=== PATIENT | male | born 1990 | race Caucasian/White ===

== ENCOUNTER 2016-12-14 13:11 | Emergency (ER) | payer OTHER ==
[2016-12-14 14:26] VITALS: BP 144/77; PULSE 70; RESP 16; TEMP 98.1; O2SAT 95
--- NOTE | 2016-12-14 16:19 | UCPHY ---
H & P Time Seen by Provider: 12/14/16 15:57 Patient Type: New HPI/ROS: 26-year-old male presents complaining of cold symptoms for approximately 1-2 weeks and then noticed some spots in the back of his throat today Painful swallowing, no fevers no chills Review of systems As per HPI Positive cold symptoms General no fever no chills no weakness HEENT no eye pain no eye discharge. No eye redness, positive sore throat Respiratory no cough, no shortness of breath Cardiac no chest pain, no peripheral edema GI no abdominal pain, no diarrhea, no constipation, no nausea, no vomiting no flank pain, no hematuria, no dysuria Musculoskeletal no myalgias, no joint pain Heme no easy bruising, no easy bleeding Endo no polyuria, no polydipsia Skin no rashes, no pruritus Neuro no syncope, no dizziness, no headaches Psych is no suicidal ideation, no homicidal ideation Past Medical/Surgical History: None Social History: Alcohol socially, denies drug use Smoking Status: Never smoked Physical Exam: 26-year-old male Alert and oriented in no acute distress nontoxic appearance, afebrile Atraumatic normocephalic Extraocular muscles intact, anicteric Neck-supple, positive anterior cervical lymphadenopathy mildly tender to palpation Oropharynx positive enlarged tonsils, erythematous, no uvular deviation, no purulent exudate, tolerating own secretions, no trismus Several aphthous ulcers, erythematous base with central ulcer present in posterior pharynx Lungs clear to auscultation bilaterally Heart regular rate and rhythm Abdomen normoactive bowel sounds soft nontender Extremities no cyanosis clubbing edema Skin no rash Constitutional: Initial Vital Signs Temperature (C) 36.7 C 12/14/16 14:22 Heart Rate 70 12/14/16 14:22 Respiratory Rate 16 12/14/16 14:22 Blood Pressure 144/77 H 12/14/16 14:22 O2 Sat (%) 95 12/14/16 14:22 O2 Delivery Mode Room Air Allergies/Adverse Reactions: No Known Allergies Allergy (Verified 12/14/16 14:21) Home Medications: Medication Instructions Recorded NK [No Known Home Meds] 05/11/16 Medical Decision Making ED Course/Re-evaluation: Patient seen and evaluated for sore throat with spots Differential diagnosis considered Strep pharyngitis, viral syndrome, [id number] disease, herpes Impression [id number], likely Coxsackie virus Plan Symptomatic care-rest, fluids, [id number] throat soothing medicines such as Cepacol or Sucrets Acetaminophen or ibuprofen as needed for pain and fever Follow up with primary care as needed Departure - Departure Disposition: Home, Routine, Self-Care Clinical Impression: Hand, foot and mouth disease, Viral pharyngitis Condition: Good Instructions: Pharyngitis (ED), Hand, Foot, and Mouth Disease (ED) Referrals: NONE *PRIMARY CARE P,. [Primary Care Provider] - As per Instructions [facility] [Provider Group] - As per Instructions - PQRS PQRS Measurement: na
== END 2016-12-14 16:20 | disposition home or self-care (01) ==
LOC: CED 13:11
DX: B08.4 Enteroviral vesicular stomatitis with exanthem (principal); J02.8 Acute pharyngitis due to other specified organisms
CPT/HCPCS: 99203-PO; G0463-PO